=== PATIENT | male | born 1965 | race Caucasian/White ===

== ENCOUNTER 2022-04-05 20:21 | Emergency (ER) | payer BC, SELFPAY ==
[2022-04-05 20:25] VITALS: BP 167/81; PULSE 96; RESP 16; TEMP 36.8; O2SAT 98
[2022-04-05 20:48] VITALS: BP 143/68
[2022-04-05] MEDS: Lidocaine 1% Multi-Dose W/EPI 1/100,000 50 ML VIAL (20:49)
[2022-04-05] MEDS: Cellulose,Oxidized 2X3 PKT 1 EACH MC ×2 (20:49→20:57)
--- NOTE | 2022-04-05 20:49 | W.ED.GENAD ---
Discharge Plan Disposition Patient Disposition: HOME Condition: Good Discharge Details Clinical Impression: Hemorrhage of skin lesion Primary Care Provider: Candelario Mathews ED Provider: Philip Hagen Home Meds and New Rx's Prescriptions: Continued bupropion HCl 100 mg Tablet 100 mg PO DAILY aspirin 81 mg Tablet,Chewable 81 mg PO DAILY losartan 100 mg Tablet 100 mg PO DAILY Discharge Instructions Additional Instructions: At this time the bleeding lesion on your ear has stopped bleeding. To reduce the risk of bleeding I would hold off on taking your aspirin for the next 2 or 3 days. If the bleeding recurs, you have been given some hemostatic agents to apply to the ER. Please apply these with pressure. If the bleeding continues in spite of this, please return to the ER for reassessment. If you notice any worsening of your symptoms, or any new symptoms such as vomiting, diarrhea, fever, chills, shortness of breath, chest pain, numbness, weakness, or fainting , please return immediately to the emergency department for reevaluation. Please follow up with your primary care provider as soon as possible for reassessment and reevaluation. As always, it was a pleasure participating in your medical care today. Referrals: Candelario Mathews [Primary Care Provider] - Medical Decision Making This is a pleasant 56-year-old male who takes daily aspirin no significant other past medical history who presents today for a bleeding lesion on his right ear. Patient states that he had a small lesion on his right ear which she picked at, and after picking at it it has bled incessantly. He denies any tick bites. He denies any other previous lesions. He denies any history of bleeding diatheses. No other complaints at this time. He has applied pressure to the area but it continues to bleed. Patient demonstrates a small pinprick lesion on his right earlobe that is actively bleeding. No other active lesions. No pulsatile bleeding, no clinical evidence of arterial bleed. Suspect small venous bleed. The area was numbed with lidocaine with epinephrine but this did not cause cessation of the bleeding. Surgicel was applied but this also did not fixate the bleeding. The area was then cauterized with appropriate cessation of the bleeding. Patient tolerated this well. Patient will be discharged home with tamponade device, additional Surgicel and Surgifoam if needed. I have extensively reviewed the treatment plan and discharge instructions with the patient. I have addressed all patient concerns at this time. The patient was made aware of what symptoms to monitor for that would warrant a return to the emergency department. Discussed the plan with the patient, they demonstrate verbal understanding and agreement with our assessment and plan at this time. The documentation in this chart was dictated using [employer] dictation software. Please excuse any dictation errors. HPI General Date/Time Provider Initiated Documentation: 04/05/22 20:23. HPI Narrative: This is a pleasant 56-year-old male who takes daily aspirin no significant other past medical history who presents today for a bleeding lesion on his right ear. Patient states that he had a small lesion on his right ear which she picked at, and after picking at it it has bled incessantly. He denies any tick bites. He denies any other previous lesions. He denies any history of bleeding diatheses. No other complaints at this time. He has applied pressure to the area but it continues to bleed. Related Data Home Medications Medication Instructions Recorded Confirmed aspirin 81 mg chewable tablet 81 mg PO DAILY 04/05/22 04/05/22 bupropion HCl 100 mg tablet 100 mg PO DAILY 04/05/22 04/05/22 losartan 100 mg tablet 100 mg PO DAILY 04/05/22 04/05/22 Allergies Allergy/AdvReac Type Severity Reaction Status Date / Time No Known Allergies Allergy Unverified 04/05/22 20:27 General Stated Complaint: Laceration DEVIN: 4 Review of Systems All systems reviewed & are unremarkable except as noted in HPI and below PFSH All Active Problems Hemorrhage of skin lesion (Acute) Social History Smoking/Tobacco Use Status: Current every day Tobacco Type: cigarettes Smoking risk assessment performed?: Yes Alcohol Intake: current Alcohol Intake frequency: a few times a week Alcohol type: beer Substance use type: does not use and former substance user Do you feel safe at home: Yes Do you feel safe in your relationship?: Yes Exam Narrative Exam Narrative: 1.Const: Well-nourished, Well-developed, appearing stated age 2.Eyes: PERRL, no conjunctival injection, and symmetrical lids. 3.ENT: Atraumatic external nose and ears. Moist MM. Neck: Symmetric, trachea midline, No thyromegaly. 4.CVS: +S1/S2, No murmurs or gallops. Peripheral pulses 2+ and equal in all extremities. Brisk capillary refill in all extremities. 5.RESP: Unlabored respiratory effort. Clear to auscultation bilaterally. No wheezes rales or rhonchi 6.GI: Soft, Nontender/Nondistended, No hepatosplenomegaly. No guarding or rebound. 7.MSK: Normocephalic/Atraumatic, Extremities w/o deformity or ttp No cyanosis or clubbing, Normal movement of all extremities 8.Skin: Warm, Dry. Patient's right ear demonstrates a very small lesion on the pinprick in diameter, that is actively bleeding. There is no high pressured squirting of blood. No other atypical lesions. 9.Neuro: clinical care leader II-XII grossly intact. Sensation grossly intact, no focal neurologic deficits. 10.Psych: (AAO) x3. Appropriate mood and affect Course Vital Signs Vital signs: Vital Signs Temperature 36.8 C 04/05/22 20:25 Pulse 96 H 04/05/22 20:25 Respiratory Rate 16 04/05/22 20:25 Blood Pressure 167/81 H 04/05/22 20:25 Pulse Oximetry 98 04/05/22 20:25 Temperature 36.8 C 04/05/22 20:25 Pulse 96 H 04/05/22 20:25 Respiratory Rate 16 04/05/22 20:25 Respiratory Effort Non-Labored 04/05/22 20:29 Blood Pressure 143/68 H 04/05/22 20:48 Pulse Oximetry 98 04/05/22 20:25 Pain Level 0 04/05/22 20:25 PAWSS Have you Been Recently Intoxicated or Drunk Within the Last 30 days?: No Have you Ever Experienced Previous Episodes of Alcohol Withdrawal?: No Have you ever Experienced Withdrawal Seizures?: No Have you ever Experienced Delirium Tremens(DT)s?: No Have you ever undergone Alcohol Rehabilitation Treatment (i.e, inpt ot outpatient treatment programs)?: No Have you ever Experienced Blackouts?: No Have you ever Combined Alcohol with other Downers within the last 90 days?: No Have you ever Combined Alcohol with any other Substance of Abuse during the last 90 days?: No Positive Blood Alcohol level on Presentation? [PCS.BAL]: No Evidence of Increased Autonomic Activity (i.e. HR>120, tremor, sweating, agitation, nausea)?: No Result: 0
[2022-04-05] MEDS: Gelatin SPONGE 12-7 MM PKT 1 EACH TP (20:57)
== END 2022-04-05 20:58 | disposition home or self-care (01) ==
PROVIDERS: Emergency Provider Student in an Organized Health Care Education/Training Program; PCP Family Medicine
DX: L98.8 Other specified disorders of the skin and subcutaneous tissue (principal); H92.21 Otorrhagia, right ear
CPT/HCPCS: 99283